=== PATIENT | female | born 1970 | race Caucasian/White ===

== ENCOUNTER 2018-05-29 07:40 | Day surgery (SDC) | payer MEDICAID, OTHER ==
[2018-05-29 09:12] LABS: INTERNATIONAL RATION (INR) 0.89; PROTHROMBIN TIME 12.5 SEC (11.4-15.4)
[2018-05-29 09:13] LABS: PARTIAL THROMBOPLASTIN TIME 31.1 SEC (23.5-35.8)
[2018-05-29 11:14] LABS: APPEARANCE ALL TUBES CLEAR; COLOR ALL TUBES COLORLESS; CSF TOTAL VOLUME 10.5 CC; CSF TUBE NUMBER 3; RED BLOOD CELL,CSF 0 /uL (0-10); VOLUME TUBE 4 3.5 CC; WHITE BLOOD CELL,CSF 1 /uL (0-5)
[2018-05-29 11:21] LABS: GLUCOSE,CSF 51 mg/dL (40-70); PROTEIN,CSF 49 mg/dL (12-60)
[2018-05-29 12:20] VITALS: BP 170/90
--- NOTE | 2018-05-29 13:47 | RADIOLOGY REPORT (SQ) ---
EXAM DESCRIPTION: LUMBAR PUNCTURE; FLUORO/NEEDLE PLACEMENT/SPINE COMPLETED DATE/TIME: 05/29/2018 10:20 am REASON FOR STUDY: MS COMPARISON: None. FLUOROSCOPY TIME: 2 images saved to PACS. TECHNIQUE: Fluoroscopic guided lumbar puncture with opening and closing pressures. LIMITATIONS: None. PROCEDURE: After written consent and assessment were obtained, the patient was brought into the fluo roscopy room and placed prone on the table. The patient's lower back was prepped in a sterile fashion and an entry site was selected under live fluoroscopic guidance. The entry site was anesthetized wit h 1% lidocaine. The spinal needle was advanced through the skin and into the thecal sac at the level of L 2 -L 3 . An opening pressure of 26 units was obtained. After approximately 10.5 ml of CSF was d rained, a closing pressure of 14 units was obtained. The needle was removed and a sterile bandage was placed of the site. Specimens were sent to the lab for testing. A fluoroscopic spot image was saved to PACS confirming level access. FINDINGS: Clear CSF IMPRESSION: Lumbar puncture under fluoroscopy. No immediate complication. COMMENT: Patient medication list reviewed: Yes- Quality ID# [id number]:Eligible professional attests to doc umenting in the medical record they obtained, updated, or reviewed the patient's current medications. Quality ID 145: Final reports for procedures using fluoroscopy that document radiation exposure indic es, or exposure time and number of fluorographic images (if radiation exposure indices are not availa ble) TECHNICAL DOCUMENTATION: Job ID: [id number] [employer]- All Rights Reserved Reading location - IP/workstation name: [email or web address]
== END 2018-05-29 12:30 | disposition home or self-care (01) ==
LOC: RAD 07:40
PROVIDERS: ATTEND Specialist
DX: G35 Multiple sclerosis (principal); I10 Essential (primary) hypertension; Z88.0 Allergy status to penicillin; Z88.8 Allergy status to other drugs, medicaments and biological substances; Z88.1 Allergy status to other antibiotic agents
CPT/HCPCS: 36415; 62270; 77003; 82945; 83916; 84157; 85610; 85730; 87070; 87205; 89050